=== PATIENT | female | born 1995 | race Caucasian/White ===

== ENCOUNTER 2016-08-30 07:31 | Emergency (ER) | payer BC ==
--- NOTE | 2016-08-30 07:43 | UCPHY ---
H & P Patient Type: New HPI/ROS: CHIEF COMPLAINT: Dysuria and Frequency HISTORY OF PRESENT ILLNESS: approximately 12 hours ago developed dysuria with frequency. This morning she noted some mild hematuria. Only on 1 occasion. No clots. She denies any trauma. Last UTI 2 year Fever none Chills none Rigors none flank pain none abdominal pain none No vaginal discharge or lesions Exposure: None REVIEW OF SYSTEMS: Gastrointestinal: No vomiting, no abdominal pain. Field Counsel: No discharge or lesions. Smoking Status: Never smoked Physical Exam: Gen: Afebrile. WD. WN. Nontoxic. Abdomen: BS positive. Nondistended. Soft and nontender. No CVA tenderness Constitutional: Initial Vital Signs Temperature (C) 36.3 C 08/30/16 07:49 Heart Rate 60 08/30/16 07:49 Respiratory Rate 16 08/30/16 07:49 Blood Pressure 104/56 L 08/30/16 07:49 O2 Sat (%) 97 08/30/16 07:49 O2 Delivery Mode Room Air Allergies/Adverse Reactions: No Known Allergies Allergy (Unverified 08/30/16 07:49) Home Medications: Medication Instructions Recorded Nitrofurantoin Macrocrystal 100 mg PO Q6 5 Days 08/30/16 [Macrodantin 100 mg (*)] Phenazopyridine HCl [Pyridium] 200 mg PO TID #6 tab 08/30/16 Medical Decision Making Differential Diagnosis: Symptomatology and urinalysis supports simple cystitis. No evidence on clinical exam or history to suggest pyelonephritis. Further as there is no vaginal discharge and no known exposure or lesions, no indication for pelvic exam at this time. - Data Points Laboratory Results: 08/30/16 07:47 Urine Color YELLOW Urine Appearance CLOUDY Urine pH 6.5 (5.0-7.5) Ur Specific [place] >= 1.030 (1.002-1.030) Urine Protein 3+ H (NEGATIVE) Urine Ketones 3+ H (NEGATIVE) Urine Blood 3+ H (NEGATIVE) Urine Nitrate POSITIVE H (NEGATIVE) Urine Bilirubin NEGATIVE (NEGATIVE) Urine Urobilinogen 0.2 EU (0.2-1.0) Ur Leukocyte Esterase 1+ H (NEGATIVE) Urine RBC 10-15 H /hpf (0-3) Urine WBC >182 H /hpf (0-3) Ur Epithelial Cells 1+ /lpf (NONE-1+) Urine Bacteria 1+ H /hpf (NONE SEEN) Urine Mucus 2+ H /lpf (NONE-1+) Urine Glucose NEGATIVE (NEGATIVE) Medications Given: Discontinued Medications Phenazopyridine HCl (Pyridium) 200 mg PO EDNOW ONE Stop: 08/30/16 07:53 Last Admin: 08/30/16 07:52 Dose: 200 mg Departure - Departure Disposition: Home, Routine, Self-Care Clinical Impression: Cystitis Condition: Good Instructions: Urinary Tract Infection in Women (ED) Additional Instructions: Empty her bladder frequently Rosendo peridium for the symptomatology. Not both. Nitrofurantoin for 5 days. Return if fever or back pain Referrals: NONE *PRIMARY CARE P,. [Primary Care Provider] - As per Instructions Prescriptions: Nitrofurantoin Macrocrystal [Macrodantin 100 mg (*)] 100 mg PO Q6 5 Days Phenazopyridine HCl [Pyridium] 200 mg PO TID #6 tab - PQRS PQRS Measurement: Not applicable
[2016-08-30 07:50] LABS: COLOR YELLOW; LEUKOCYTE ESTERASE,URINE 1+ (NEGATIVE); NITRITE,URINE POSITIVE (NEGATIVE); PH,URINE 6.5 (5.0-7.5)
[2016-08-30] MEDS ORDERED: PHENAZOPYRIDINE HCL 200 MG TAB PO ONE (07:52)
[2016-08-30 08:03] LABS: WBC,URINE >182 /hpf (0-3)
[2016-08-30 08:04] LABS: BACTERIA 1+ /hpf (NONE SEEN); MUCUS 2+ /lpf (NONE-1+)
[2016-08-30 08:10] VITALS: BP 104/56; PULSE 60; RESP 16; TEMP 97.4; O2SAT 97
== END 2016-08-30 08:26 | disposition home or self-care (01) ==
LOC: CED 07:31
DX: N30.01 Acute cystitis with hematuria (principal); Z87.440 Personal history of urinary (tract) infections
CPT/HCPCS: 81003-PO; 81015-PO; G0463-PO